=== PATIENT | female | born 1980 | race Hispanic/Latino ===

== ENCOUNTER 2018-01-05 13:18 | Outpatient (CLI) | payer OTHER | END 2018-01-05 13:19 | disposition home or self-care (01) | LOC: BICULT 13:18 | PROVIDERS: ATTEND Family Medicine | DX: M79.89 Other specified soft tissue disorders (principal); M71.22 Synovial cyst of popliteal space [Baker], left knee | CPT/HCPCS: 76999 ==

== ENCOUNTER 2018-03-15 10:37 | Day surgery (SDC) | payer OTHER ==
[2018-03-10 09:35] VITALS: BMI 32.4
[2018-03-15] MEDS ORDERED: Midazolam HCl 2 mg/2 ml Vial ONE (13:06)
[2018-03-15] MEDS ORDERED: Fentanyl 100 MCG/2 ML VIAL ONE ×2 (13:06→14:26)
[2018-03-15] MEDS ORDERED: Ferric Subsulfate 8 ML BOT ONE (14:04)
[2018-03-15] MEDS ORDERED: Ondansetron PF 4 MG/2 ML Vial ONE (14:06)
[2018-03-15] MEDS ORDERED: Dexamethasone 20 MG/5 ML VIAL ONE (14:06)
[2018-03-15] MEDS ORDERED: PROPOFOL 200 MG/20 ML VIAL ONE (14:06)
[2018-03-15] MEDS ORDERED: Ketorolac Tromethamine 30 MG/ML VIAL ONE (14:35)
[2018-03-15] MEDS ORDERED: HYDROcodone/Acetaminophen 5/325 mg Tablet ONE (17:41)
--- NOTE | 2018-03-15 22:13 | OP ---
PREOPERATIVE DIAGNOSES: 1. Abnormal uterine bleeding. 2. Endometrial polyp. 3. ASCUS Pap smear with positive HPV test. PROCEDURES PERFORMED: 1. Hysteroscopy with polypectomy and dilation and curettage. 2. Cervical colposcopy with cervical biopsy. SURGEON: Lilly Mehta D.O. COMPLICATIONS: None. ESTIMATED BLOOD LOSS: 20 mL. FINDINGS: Normal appearing external genitalia, normal vaginal epithelium, normal cervical epithelium with the exception of a small area of acetowhite around the 12-1 o'clock position, also a small scar from her previous cervical biopsy, otherwise normal appearing cervical epithelium with colposcopy, p olypoid appearing endometrium with a small endometrial polyp on the posterior aspect of the uterus an d normal appearing fallopian tube ostia. INDICATIONS FOR THE PROCEDURE: Ms. Marie Ferguson is a 37-year-old female with complaints of ab normal bleeding. She underwent a sonogram and endometrial biopsy, which demonstrated a possible poly p. The patient was counseled on treatment options and elected to have a hysteroscopy with polypectom y with a D&C. The patient also had an abnormal Pap smear with a positive HPV test due to these findi ngs. Colposcopy had previously been performed; however, the biopsy was insufficient, therefore, was repeated again today. PROCEDURE IN DETAIL: The patient was brought to the operating room. She was placed under general an esthesia using Yellofin stirrups. She was prepped and draped in a sterile fashion. An official time out was performed. A single site speculum was placed in the vagina. The anterior cervix was grasped using a single tooth tenaculum and the cervix was sequentially dilated using Reuben dilators. The [place] Clear hysteroscope was then inserted into the cervical canal into the endometrial canal and the fallo pian tube ostia were evaluated and appeared normal. There was polypoid-appearing tissue on the poste rior aspect of the uterus. This was removed using the hysteroscopic collected in a specimen co ntainer and then the hysteroscope was then removed. A sharp curettage was performed in a circumferen tial fashion and this tissue was also collected and sent for pathologic evaluation. The acetowhite w as then placed on the cervix and the cervix was evaluated with a microscope small area of the a cetowhite change around 1 o' clock position where her previous biopsy was also taken. The biopsy was taken again today. Monsel's was placed at the biopsy site and hemostasis was achieved. Everything was removed from the vagina. The patient was placed back in supine position. She was extubated with out difficulty. All counts were correct x2. There were no complications. The hysteroscopic fluid d eficit was 100.
== END 2018-03-15 18:03 | disposition home or self-care (01) ==
LOC: SDC 10:37
PROVIDERS: ATTEND Obstetrics & Gynecology
PROC: 0UB98ZX Excision of Uterus, Via Natural or Artificial Opening Endoscopic, Diagnostic (ICD-10-PCS; principal; 2018-03-15)
PROC: 0UBC8ZX Excision of Cervix, Via Natural or Artificial Opening Endoscopic, Diagnostic (ICD-10-PCS; principal; 2018-03-15)
PROC: 0UDB8ZX Extraction of Endometrium, Via Natural or Artificial Opening Endoscopic, Diagnostic (ICD-10-PCS; principal; 2018-03-15)
DX: N84.0 Polyp of corpus uteri (principal); N84.1 Polyp of cervix uteri; B37.3 Candidiasis of vulva and vagina
CPT/HCPCS: 36415; 86850; 86900; 86901; 88305; 96374; 96375; J1100; J1885; J2250; J2405; J2704; J3010